=== PATIENT | female | born 1990 | race Caucasian/White ===

== ENCOUNTER 2016-10-16 11:57 | Emergency (ER) | payer OTHER ==
[~2016-10-16] VITALS: Ht 152.4 cm; Wt 66.7 kg
[~2016-10-16 11:57] MED LIST: BACTRIM DS 8001 TAB PO; METHADONE HC10 MG/ML PO
--- NOTE | 2016-10-16 14:21 | ED PSYCHIATRIC COMPLAINT ---
History of Present Illness General Chief Complaint: ETOH/Drug Related Complaint Stated Complaint: BIBA FOR DRUG W/D Source: patient Exam Limitations: no limitations Vital Signs & Intake/Output Vital Signs & Intake/Output Vital Signs Date Time Temp Pulse Resp B/P B/P Pulse O2 O2 Flow FiO2 Mean Ox Delivery Rate 10/16 1748 98.9 85 18 112/64 10/16 1748 98.9 85 18 112/64 98 Room Air Room Air 10/16 1641 99.0 80 20 104/60 10/16 1200 97.1 83 18 147/74 98 Room Air Allergies Coded Allergies: aspirin (BLURRED VISION, VISION LOSS, HIVES 10/16/16) bupropion (SEIZURE 10/16/16) clindamycin (HIVES 10/16/16) Reconcile Medications Cephalexin 500 MG CAPSULE 1 CAP PO Q6 CELLULITIS Lorazepam (Ativan) 1 MG TABLET 1 TAB PO Q6 WITHDRAWAL 1 TAB LATER TODAY, THEN 4 TAB, 3 TAB, 2 TAB AND 1 TAB DAILY TAPER Sulfamethoxazole/Trimethoprim (Bactrim Ds Tablet) 800 MG-160 MG TABLET 1 TAB PO BID SKIN INFECTION Triage Note: BIBA FOR WITHDRAWAL FROM SEVERAL SUBSTANCES, LAST USE 3 DA[address] A[address] PT FROM [facility] WITH 2 [facility] IN ATTENDANCE. PT REPORTS ABDOMINAL PAIN AND LEFT ARM PAIN FROM WHERE SHE HAS AN ABCESS LANCED RECENTLY. Triage Nurses Notes Reviewed? yes : No Patient currently breastfeeds: No HPI: Patient presents for evaluation of withdrawal from benzodiazepines opiates cocaine MDMA paul dust and alcohol. Patient states she routinely takes 6 mg of Xanax daily 1-2 g of heroin intravenously daily along with a pint per day of alcohol. She states her last use was about 3 days ago and now she is feeling withdrawal symptoms. In addition she states she had a recent incision and drainage of a left proximal forearm abscess and she is having pain proximal to the area of the incision and drainage. Patient is experiencing nausea and abdominal pain secondary to withdrawal. She is currently in police custody. Past History Travel History Traveled to [place] past 21 day No Medical History Any Pertinent Medical History? see below for history Neurological: seizure, SKULL FRACTURE Respiratory: asthma, bronchitis Hepatic: hepatitis C Psychiatric: iv drug use. Surgical History Surgical History: non-contributory Psychosocial History Who do you live with Patient and family What is your primary language Spanish Tobacco Use: Current Daily Use Daily Tobacco Use Amount/Type: => 5 Cigarettes daily ETOH Use: occasional use Illicit Drug Use: cocaine, heroin, marijuana, PCP, benzodiazepines, DANIA ECSTACY Family History Hx Contributory? No Review of Systems Review of Systems Constitutional: Reports: no symptoms. EENTM: Reports: no symptoms. Respiratory: Reports: no symptoms. Cardiovascular: Reports: no symptoms. GI: Reports: abdominal pain, nausea. Genitourinary: Reports: no symptoms. Musculoskeletal: Reports: no symptoms. Skin: Reports: no symptoms. Neurological/Psychological: Reports: tremors. Hematologic/Endocrine: Reports: no symptoms. Immunologic/Allergic: Reports: no symptoms. All Other Systems: Reviewed and Negative Physical Exam Physical Exam General Appearance: SEE BELOW Neurological/Psychiatric: SEE BELOW Comments: Gen.: Well-nourished, well-developed, no acute respiratory distress. Mildly anxious. Head: Normocephalic, atraumatic. Eyes: Normal inspection bilaterally Ears: Normal inspection bilaterally Nose: Normal inspection Throat/mouth : Moist mucosa Neck: Supple, full range of motion, no goiter Heart: Regular rate and rhythm, no murmurs rubs or gallops Lungs: Clear to auscultation bilaterally with normal air entry Chest: Nontender Back: Normal range of motion Abdomen: Soft, nontender, nondistended, normal bowel sounds Extremities: Normal range of motion grossly, equal radial pulses, no cyanosis clubbing or edema, course extremity tremors Neurologic: Cranial nerves grossly intact, speech is clear Skin: warm and dry, innumerable skin lesions consistent with IV drug abuse of the extremities, left proximal forearm with 3-4 mm incision and drainage site with no appreciable drainage, tenderness and induration proximal to this area Psychiatric: Calm, cooperative, no apparent delusions or hallucinations SAD PERSONS Done? patient not suicidal Progress Differential Diagnosis: WITHDRAWAL, ABSCESS, CELLULITIS Plan of Care: Orders Procedure Date/time Status CIWA 10/16 1553 Active URINE DRUG SCREEN FOR ER ONLY 10/16 1420 Complete ETHANOL 10/16 1420 Complete COMPREHENSIVE METABOLIC PANEL 10/16 1420 Complete CBC WITHOUT DIFFERENTIAL 10/16 142 Complete Current Medications Sig/Tania Start time Last Medication Dose Stop Time Status Admin Cephalexin 1,000 MG ONCE ONE 10/16 1844 AC (Keflex 500MG Cap) 10/16 1845 Trimethoprim/ 1 TAB ONCE ONE 10/16 1844 AC Sulfamethoxazole 10/16 1845 (Bactrim DS) Laboratory Tests 10/16/16 1440: Anion Gap 12, Estimated GFR > 60, BUN/Creatinine Ratio 22.5, Glucose 107 H, Calcium 9.9, Total Bilirubin 0.4, AST 16, ALT 30, Alkaline Phosphatase 67, Total Protein 8.6 H, Albumin 4.5, Globulin 4.1, Albumin/Globulin Ratio 1.1, CBC w Diff NO MAN DIFF REQ, RBC 4.99, MCV 82.3, MCH 27.9, RDW 15.4 H, MPV 7.7, Gran % 52.4, Lymphocytes % 40.6, Monocytes % 5.3, Eosinophils % 1.1, Basophils % 0.6, Absolute Granulocytes 4.2, Absolute Lymphocytes 3.3, Absolute Monocytes 0.4, Absolute Eosinophils 0.1, Absolute Basophils 0.1, PUBS MCHC 33.8, Serum Alcohol < 10.0 10/16/16 1425: Urine Opiates Screen 131.00, Methadone Screen 51, Barbiturate Screen < 60, Ur Phencyclidine Scrn < 6.00, Amphetamines Screen < 100, U Benzodiazepines Scrn < 85, Urine Cocaine Screen 51, Urine Cannabis Screen < 5.00 Diagnostic Imaging: Discussed w/RAD: Ultrasound. Radiology Impression: PATIENT: ESTELA JONES PRESENT AGE: 26 PATIENT ACCOUNT NO: [id number] : 88 LOCATION: [facility] ORDERING PHYSICIAN: MALIKA BAILON MD SERVICE DATE: 10/16/16 EXAM TYPE: US - US- SUPERFICIAL IMAGING EXTREMI EXAMINATION: US SUPERFICIAL IMAGING, EXTREMITY CLINICAL INFORMATION: 26 year old female with intubation, tenderness of proximal left forearm. Status post incision and drainage. To assess for presence of any residual abscess, collection. COMPARISON: 03/23/2009. TECHNIQUE: Targeted ultrasound of the left antecubital fossa. FINDINGS: There is no discrete focal fluid collection identified at the left antecubital fossa around the site of incision and drainage. Nonspecific soft tissue thickening, edema pattern is identified consistent with inflammatory changes, likely cellulitis. IMPRESSION: No sonographic detectable discrete focal fluid collection suggestive of residual abscess formation is visualized at and around the site of the incision and drainage, at the left antecubital fossa. DICTATED BY: DEANA QUARLES MD DATE/ TIME DICTATED:05/1544 IMPORT COORDINATION AND PRODUCTION HEAD:YUDITH DATE/TIME TRANSCRIBED: 10/16/161544 CONFIDENTIAL, DO NOT COPY WITHOUT APPROPRIATE AUTHORIZATION. < Electronically signed in Other Vendor System> SIGNED BY: DEANA QUARLES MD 10/16/16 [id number] Comments: 10/16/2016 6:29:14 PM I have updated Estela on her test results. Plan antibiotic coverage for the possibility of the cellulitis of the left proximal forearm and Ativan for the possibility of benzodiazepine and alcohol withdrawal. Departure Departure Disposition: HOME OR SELF CARE Condition: Stable Clinical Impression Primary Impression: Alcohol withdrawal Qualifiers: Complication of substance-induced condition: uncomplicated Qualified Code: F10.230 - Alcohol dependence with withdrawal, uncomplicated Secondary Impressions: Paul dust abuse, Benzodiazepine abuse, Cellulitis of arm , left, Cocaine abuse, Opiate abuse, continuous Referrals: [facility] PATIENT HAS NO PRIMARY CARE DR (PCP/Family) Additional Instructions: Ativan as prescribed for withdrawal symptoms (take one tablet tonight followed by 4 tablets tomorrow, 3 tablets the day after, 2 tablets the day after that and one tablet the day after that-SPACE the tablets out evenly throughout the day). Cephalexin and Bactrim as prescribed for your arm infection. Contact [facility] and arrange for follow-up appointment for general medical evaluation as soon as possible. Return if any concerns or sudden worsening. Departure Forms: Customer Survey General Discharge Information Prescriptions: Current Visit Scripts Lorazepam (Ativan) 1 TAB PO Q6 #11 TAB 1 TAB LATER TODAY, THEN 4 TAB, 3 TAB, 2 TAB AND 1 TAB DAILY TAPER Cephalexin 1 CAP PO Q6 #40 CAP Sulfamethoxazole/Trimethoprim (Bactrim Ds Tablet) 1 TAB PO BID #20 TAB
[2016-10-16 14:45] LABS: ABSOLUTE BASOPHIL COUNT 0.1 /CUMM (0.0-0.2); ABSOLUTE EOSINOPHIL COUNT 0.1 /CUMM (0.0-0.7); ABSOLUTE GRANULOCYTE CT 4.2 /CUMM (1.4-6.5); ABSOLUTE LYMPH COUNT 3.3 /CUMM (1.2-3.4); ABSOLUTE MONOCYTE COUNT 0.4 /CUMM (0.10-0.60); BASOPHIL % 0.6 % (0.0-2.0); EOSINOPHIL % 1.1 % (0-5); GRANULOCYTE % 52.4 % (42.2-75.2); HEMATOCRIT 41.1 % (37-47); MEAN CORPUSCULAR HGB 27.9 PG (27.0-31.0); MEAN CORPUSCULAR HGB CONC 33.8 G/DL (33.0-37.0); MEAN CORPUSCULAR VOLUME 82.3 FL (81.0-99.0); MEAN PLATELET VOLUME 7.7 FL (7.4-10.4); PLATELET COUNT 412 /CUMM (130-400); RBC DISTRIBUTION WIDTH 15.4 % (11.5-14.5); RED BLOOD CELL CT 4.99 /CUMM (4.20-5.40)
--- NOTE | 2016-10-16 16:09 | ULTRASOUND REPORT ---
EXAMINATION: US SUPERFICIAL IMAGING, EXTREMITY CLINICAL INFORMATION: 26 year old female with intubation, tenderness of proximal left forearm. Status post incision and drainage. To assess for presence of any residual abscess, collection. COMPARISON: 03/23/2009. TECHNIQUE: Targeted ultrasound of the left antecubital fossa. FINDINGS: There is no discrete focal fluid collection identified at the left antecubital fossa around the site of incision and drainage. Nonspecific soft tissue thickening, edema pattern is identified consistent with inflammatory changes, likely cellulitis. IMPRESSION: No sonographic detectable discrete focal fluid collection suggestive of residual abscess formation is visualized at and around the site of the incision and drainage, at the left antecubital fossa.
[2016-10-16 17:48] VITALS: BP 112/64
[2016-10-16] MEDS ORDERED: ATIVAN1 M1 PO (18:37)
[2016-10-16] MEDS ORDERED: CEPHALEXIN500 M3 PO (18:37)
[2016-10-16] MEDS ORDERED: BACTRIM DS TAB1 EACH PO (18:37)
== END 2016-10-16 18:54 ==
LOC: ERH 11:57
PROVIDERS: Emergency Medicine
DX: F10.239 Alcohol dependence with withdrawal, unspecified (principal); L03.114 Cellulitis of left upper limb; F13.10 Sedative, hypnotic or anxiolytic abuse, uncomplicated; F14.10 Cocaine abuse, uncomplicated; F11.10 Opioid abuse, uncomplicated; F16.10 Hallucinogen abuse, uncomplicated
CPT/HCPCS: 76881; 80307; G0480